=== PATIENT | female | born 1980 | race Caucasian/White ===

== ENCOUNTER 2023-01-08 22:55 | Emergency (ER) | payer MEDICAID ==
[~2023-01-08] VITALS: Ht 152.4 cm; Wt 87.0 kg
[2023-01-08 23:02] VITALS: TEMP 98.7; O2SAT 99
[2023-01-09] MEDS ORDERED: LIDO700A15 TP (00:10)
[2023-01-09 00:15] VITALS: BP 160/89; PULSE 112; RESP 16
[2023-01-09] MEDS ORDERED: KETOROLAC 30MG/ML VIAL IM ONE (00:15)
[2023-01-09] MEDS ORDERED: HYDROCODONE/ACETAMINOPHEN 10/325MG TABLET PO ONE (00:15)
[2023-01-09] MEDS ORDERED: LIDOCAINE 5% PATCH TOP SCH (00:15)
== END 2023-01-09 05:40 | disposition home or self-care (01) ==
LOC: ER 23:03
DX: M54.50 Low back pain, unspecified (principal); G89.29 Other chronic pain; D64.9 Anemia, unspecified; F12.10 Cannabis abuse, uncomplicated
CPT/HCPCS: 99283; 96372; J1885

== ENCOUNTER 2024-06-28 05:31 | Emergency (ER) | payer MEDICAID ==
[~2024-06-28] VITALS: Ht 165.1 cm; Wt 77.0 kg
[~2024-06-28 05:31] MED LIST: LIDO700A15 TP
[2024-06-28 05:33] VITALS: O2SAT 98
[2024-06-28] MEDS: SODIUM CHLORIDE 0.9% 1,000 ML IV ONE (06:28)
[2024-06-28] MEDS: KETOROLAC 30MG/ML VIAL IV STA (06:28)
[2024-06-28 06:33] LABS: HEMATOCRIT. 28.4 % (36.0-48.0); HEMOGLOBIN. 9.3 g/dL (12.0-16.0); MEAN CORPUSCULAR HEMOGLOBIN 25.7 pg (28.0-32.0); MEAN CORPUSCULAR HGB CONC 32.5 g/dL (31.0-37.0); MEAN CORPUSCULAR VOLUME 79.1 fL (81.0-99.0); MEAN PLATELET VOLUME 6.4 fl (7.4-10.4); PLATELET 414 x1000/uL (130-400); RED CELL DISTRIBUTION WIDTH 14.5 % (11.6-14.6); WHITE BLOOD COUNT 11.1 x1000/uL (4.5-11.0)
[2024-06-28 06:50] LABS: DIFFERENTIAL COMMENT 1
[2024-06-28 06:56] LABS: CHLORIDE 109 mEq/L (98-107); POTASSIUM 3.9 mEq/L (3.5-5.1); SODIUM 141 mEq/L (136-145)
[2024-06-28 06:57] LABS: CARBON DIOXIDE 26 mEq/L (21-32)
[2024-06-28 06:58] LABS: CALCIUM 9.3 mg/dL (8.7-10.4)
[2024-06-28 07:02] LABS: CREATININE 0.4 mg/dL (0.6-1.0); GLUCOSE 107 mg/dL (70-105)
[2024-06-28 07:03] LABS: UREA NITROGEN BLOOD 15 mg/dL (9-23)
[2024-06-28 07:34] LABS: MICROCYTOSIS 1+; NUCLEATED RED BLOOD CELLS 1 /100 WBC
[2024-06-28 07:36] LABS: PLATELET ESTIMATE SLIGHTLY INCREASED
[2024-06-28 07:55] VITALS: BP 133/66; PULSE 99; RESP 16; TEMP 35.9; O2SAT 100
== END 2024-06-28 08:18 | disposition home or self-care (01) ==
LOC: ER 05:31
DX: Z48.00 Encounter for change or removal of nonsurgical wound dressing (principal); F17.200 Nicotine dependence, unspecified, uncomplicated
CPT/HCPCS: 99284; 96374; 71045; 96361; 80048; 83605; 85025; 36415; J1885; J7030

== ENCOUNTER 2024-09-22 10:52 | Emergency (ER) | payer MEDICAID ==
[~2024-09-22] VITALS: Ht 162.6 cm; Wt 80.0 kg
[~2024-09-22 10:52] MED LIST changes: +LIDO-53 TP; -LIDO700A15 TP
[2024-09-22 10:53] VITALS: O2SAT 99
[2024-09-22] MEDS: KETOROLAC 30MG/ML VIAL IM ONE (11:41)
[2024-09-22] MEDS: ACETAMINOPHEN 325MG TABLET PO ONE (11:42)
[2024-09-22] MEDS: MORPHINE SULFATE 4 MG/ML INJ (FOR IV/IM USE) IM ONE (11:42)
[2024-09-22 13:29] VITALS: BP 133/56; PULSE 97; RESP 18; TEMP 36.8; O2SAT 98
== END 2024-09-22 13:34 | disposition home or self-care (01) ==
LOC: ER 10:52
DX: G89.29 Other chronic pain (principal); M54.50 Low back pain, unspecified; F12.10 Cannabis abuse, uncomplicated; Z98.890 Other specified postprocedural states
CPT/HCPCS: 81025; 96372; 99284; J1885; J2270; Z7610

== ENCOUNTER 2024-10-12 01:22 | Emergency (ER) | payer MEDICAID ==
[~2024-10-12] VITALS: Ht 152.4 cm; Wt 75.0 kg
[2024-10-12 01:24] VITALS: TEMP 36.6; O2SAT 100
[2024-10-12 02:16] VITALS: O2SAT 98
[2024-10-12] MEDS: DEXAMETHASONE 10 MG/ML VIAL PO ONE (02:18)
[2024-10-12] MEDS: ACETAMINOPHEN 500MG TABLET PO ONE (02:18)
[2024-10-12 02:19] VITALS: BP 115/67; PULSE 90; RESP 19
[2024-10-12] MEDS: LIDOCAINE 5% PATCH TOP SCH (02:19)
[2024-10-12] MEDS: KETOROLAC 15MG/ML VIAL IM ONE (02:19)
[2024-10-12] MEDS ORDERED: NAPR-1176 MT (03:09)
[2024-10-12] MEDS ORDERED: LIDO-53 TP (03:09)
[2024-10-12] MEDS ORDERED: CYCL5TAB3 MT (03:10)
== END 2024-10-12 03:30 | disposition home or self-care (01) ==
LOC: ER 01:22
DX: G89.29 Other chronic pain (principal); M54.50 Low back pain, unspecified; D64.9 Anemia, unspecified; Z79.899 Other long term (current) drug therapy
CPT/HCPCS: 99284; 96372; J1885; J1100

== ENCOUNTER 2024-10-30 18:18 | Emergency (ER) | payer MEDICAID ==
[~2024-10-30] VITALS: Ht 172.7 cm; Wt 73.0 kg
[~2024-10-30 18:18] MED LIST changes: +CYCL5TAB3 MT; +NAPR-1176 MT
[2024-10-30 18:21] VITALS: TEMP 36.8; O2SAT 100
[2024-10-30] MEDS ORDERED: MORPHINE SULFATE 4 MG/ML INJ (FOR IV/IM USE) IV ONE (18:45)
[2024-10-30 19:26] LABS: PLATELET 419 x1000/uL (130-400); RED BLOOD CELL COUNT 4.46 mill/uL (4.2-5.4); RED CELL DISTRIBUTION WIDTH 19.4 % (11.6-14.6)
[2024-10-30] MEDS ORDERED: NALOXONE HCL 0.4MG/ML VIAL IV PRN (19:30)
[2024-10-30] MEDS: MORPHINE SULFATE 4 MG/ML INJ (FOR IV/IM USE) IV SCH (19:30)
[2024-10-30 19:40] LABS: CREATININE 0.6 mg/dL (0.6-1.0); HCG SCREEN NEGATIVE; UREA NITROGEN BLOOD 8 mg/dL (9-23)
[2024-10-30] MEDS: KETOROLAC 30MG/ML VIAL IV ONE (20:10)
[2024-10-30] MEDS: ACETAMINOPHEN 500MG TABLET PO ONE (20:18)
[2024-10-30] MEDS: ONDANSETRON HCL 4MG/2ML INJ IV ONE (20:18)
[2024-10-30] MEDS: SODIUM CHLORIDE 0.9% 1,000 ML IV ONE (20:19)
[2024-10-30] MEDS: CYCLOBENZAPRINE 10MG TABLET PO ONE (20:25)
[2024-10-30] MEDS: LIDOCAINE 5% PATCH TOP SCH (20:25)
[2024-10-30] MEDS: KETOROLAC 30MG/ML VIAL IM ONE (20:30)
[2024-10-30] MEDS: MORPHINE SULFATE 4 MG/ML INJ (FOR IV/IM USE) IM ONE (21:29)
[2024-10-30] MEDS ORDERED: CYCL10TA21 MT (22:04)
[2024-10-30] MEDS ORDERED: NAPR220C61 MT (22:04)
[2024-10-30 22:19] VITALS: BP 130/108; PULSE 95; RESP 20; O2SAT 100
== END 2024-10-30 22:21 | disposition home or self-care (01) ==
LOC: ER 18:18
DX: M54.50 Low back pain, unspecified (principal); Z79.1 Long term (current) use of non-steroidal anti-inflammatories (NSAID); Z79.899 Other long term (current) drug therapy
CPT/HCPCS: 99284; 96374; 96361; 80048; 84703; 85027; 36415; 96372; J2405; J2270; J7030; A4606

== ENCOUNTER 2024-11-15 07:58 | Emergency (ER) | payer MEDICAID ==
[~2024-11-15] VITALS: Ht 162.6 cm; Wt 73.0 kg
[~2024-11-15 07:58] MED LIST changes: +CYCL10TA21 MT; +NAPR220C61 MT
[2024-11-15 08:00] VITALS: O2SAT 98
[2024-11-15] MEDS: ACETAMINOPHEN WITH CODEINE 300/30MG TABLET PO ONE (09:03)
[2024-11-15] MEDS: KETOROLAC 30MG/ML VIAL IM ONE (09:03)
[2024-11-15 10:17] LABS: BASOPHILS % 0.4 % (0.0-2.0); EOSINOPHILS % 1.1 % (0.0-5.0); HEMATOCRIT. 23.1 % (36.0-48.0); HEMOGLOBIN. 7.1 g/dL (12.0-16.0); LYMPHOCYTES % 28.7 % (20.0-50.0); MEAN PLATELET VOLUME 6.3 fl (7.4-10.4); MONOCYTES % 9.5 % (2.0-8.0); NEUTROPHILS % 60.3 % (40.0-76.0); PLATELET 323 x1000/uL (130-400); RED BLOOD CELL COUNT 3.62 mill/uL (4.2-5.4); RED CELL DISTRIBUTION WIDTH 19.5 % (11.6-14.6)
[2024-11-15 10:19] LABS: ADD RBC MORPHOLOGY YES
[2024-11-15 10:30] LABS: CREATININE 0.7 mg/dL (0.6-1.0); UREA NITROGEN BLOOD 13 mg/dL (9-23)
[2024-11-15] MEDS: MORPHINE SULFATE 4 MG/ML INJ (FOR IV/IM USE) IV ONE (10:36)
[2024-11-15 11:41] LABS: PLATELET ESTIMATE NORMAL
[2024-11-15] MEDS ORDERED: TOPUD PO (12:29)
[2024-11-15 12:32] VITALS: BP 124/73; PULSE 84; RESP 16; TEMP 36.7; O2SAT 100
== END 2024-11-15 12:34 | disposition home or self-care (01) ==
LOC: ER 07:58 → CANBEDREQ 12:31 → ER 12:34
DX: G89.29 Other chronic pain (principal); M54.50 Low back pain, unspecified; Z79.1 Long term (current) use of non-steroidal anti-inflammatories (NSAID); Z79.899 Other long term (current) drug therapy
CPT/HCPCS: 80048; 85025; 36415; 96372; 96374; 99284; J1885; J2270; Z7610 ×3